=== PATIENT | male | born 1985 | race Caucasian/White ===

== ENCOUNTER 2016-11-23 20:49 | Emergency (ER) | payer OTHER ==
[~2016-11-23] VITALS: Ht 167.6 cm; Wt 73.0 kg
[~2016-11-23 20:49] MED LIST: CYCL10TA6 PO; NAPR1TAB9 PO
[2016-11-23 20:58] VITALS: TEMP 37; Ht 167.6 cm; Wt 73.0 kg
[2016-11-23] MEDS ORDERED: CYAN10005 PO (21:39)
[2016-11-23] MEDS ORDERED: CHOL1000 PO (21:39)
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
[2016-11-23] MEDS ORDERED: XYLOCAINE 1%/SOD BICARB 20 ML VIAL INFIL ONE (22:15)
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
[2016-11-23] MEDS ORDERED: DIPHTHERIA/TETANUS/PERTUSSIS 0.5 ML SYR/VIAL IM. ONE (23:00)
[2016-11-24 00:10] VITALS: BP 125/78; PULSE 83; O2SAT 96
== END 2016-11-24 00:08 | disposition home or self-care (01) ==
LOC: C.EDB 20:50 → C.EDC 11-24 00:08
DX: S01.82XA Laceration with foreign body of other part of head, initial encounter (principal); S00.81XA Abrasion of other part of head, initial encounter; S80.211A Abrasion, right knee, initial encounter; S80.212A Abrasion, left knee, initial encounter; S60.511A Abrasion of right hand, initial encounter; S60.512A Abrasion of left hand, initial encounter; V18.0XXA Pedal cycle driver injured in noncollision transport accident in nontraffic accident, initial encounter; Y93.55 Activity, bike riding; Z83.3 Family history of diabetes mellitus; Z23 Encounter for immunization

== ENCOUNTER → 2017-04-10 | Outpatient (CLI) | payer OTHER ==
[~2017-04-10] MED LIST changes: +CHOL1000 PO; +CYAN10005 PO; -CYCL10TA6 PO; -NAPR1TAB9 PO
--- NOTE | 2017-04-10 09:07 | DIAGNOSTIC IMAGING REPORT ---
CT SCAN OF THE ABDOMEN AND PELVIS WITHOUT CONTRAST CLINICAL HISTORY: Right-sided back and abdominal pain. COMPARISON STUDY: No previous studies for comparison. TECHNIQUE: CT scan of the abdomen and pelvis was performed from the lung bases to the proximal femurs. Images are reviewed in the axial, sagittal, and coronal planes. IV contrast was not administered for this examination. A dose lowering technique was utilized adhering to the principles of ALARA. CT DOSE: 787.36 mGycm FINDINGS: Lower chest: The heart is normal in size and configuration, without pericardial effusion. The lung bases and pleural spaces are clear. Liver: The unenhanced liver is normal in size, contour, and attenuation. There is no intrahepatic biliary ductal dilatation. Gallbladder: Unremarkable. Spleen: Normal in size and attenuation. Pancreas: Unremarkable. Adrenal glands: Unremarkable. Kidneys: No renal, ureteral, or bladder calculi are visualized. There is a to small to characterize 5 mm left renal hypodensity. Bowel: There are no transition zones indicate bowel obstruction. There is no evidence of acute diverticulitis. There is formed stool present within nondilated distal ileal loops. The appendix appears normal. There is a moderate amount of colonic stool present. Peritoneum: There is no intraperitoneal free air or abdominal ascites. Vasculature: The abdominal aorta is normal in course and caliber. Adenopathy: None. Pelvic viscera: The bladder, and pelvic viscera are unremarkable. Skeletal structures: No destructive osseous lesions are seen. IMPRESSION: 1. No evidence of bowel obstruction. No evidence of free air 2. Normal appendix 3. No renal, ureteral, or bladder calculi identified 4. Small bowel feces without evidence of pathologic dilatation. This a nonspecific finding, which may be normal given the lack of dilatation. Stasis or a mild enteritis are also within differential. Electronically signed by: Claude Perdomo M.D. 04/10/2017 9:06 AM Dictated Date/Time: 04/10/2017 8:56 AM
== END | disposition home or self-care (01) ==
LOC: C.CTS 08:36
PROVIDERS: ATTEND Family Medicine
DX: M54.9 Dorsalgia, unspecified (principal); R10.9 Unspecified abdominal pain